=== PATIENT | male | born 1970 | race Caucasian/White ===

== ENCOUNTER 2021-09-03 21:56 | Emergency (ER) | payer OTHER ==
[~2021-09-03] VITALS: Ht 182.9 cm; Wt 136.1 kg
[2021-09-03 22:29] LABS: BASOPHILS ABSOLUTE AUTO 0.09 K/mm3 (0.00-0.23); BASOPHILS PERCENT AUTO 1 % (0-2); EOSINOPHILS ABSOLUTE AUTO 0.31 K/mm3 (0.00-0.68); EOSINOPHILS PERCENT AUTO 3 % (0-6); Hematocrit 45.1 % (37.0-53.0); Hemoglobin 15.7 g/dL (13.5-17.5); IMMATURE GRAN ABSOLUTE AUTO 0.04 K/mm3 (0.00-0.10); IMMATURE GRAN PERCENT AUTO 0 % (0-1); LYMPHOCYTES ABSOLUTE AUTO 2.42 K/mm3 (0.84-5.20); LYMPHOCYTES PERCENT AUTO 24 % (21-46); MONOCYTES ABSOLUTE AUTO 1.05 K/mm3 (0.16-1.47); MONOCYTES PERCENT AUTO 10 % (4-13); Mean Corpuscular HGB 30.1 pg (26.0-34.0); Mean Corpuscular HGB Conc 34.8 g/dL (31.5-36.5); Mean Corpuscular Volume 86 fL (80-100); Mean Platelet Volume 9.4 fL (9.1-12.4); NEUTROPHILS ABSOLUTE AUTO 6.36 K/mm3 (1.96-9.15); NEUTROPHILS PERCENT AUTO 62 % (41-73); Platelet Count 230 K/mm3 (150-400); RDW Coefficient Variation 12.4 % (11.7-14.2); RDW Standard Deviation 39.3 fL (35.1-46.3); Red Blood Cell Count 5.22 M/mm3 (4.30-5.90); White Blood Cell Count 10.27 K/mm3 (4.00-11.30)
[2021-09-03 22:49] LABS: Alanine Aminotransfer (ALT/SGP 65 U/L (12-78); Albumin, Blood 3.6 g/dL (3.4-5.0); Alk Phos 63 U/L (50-136); Anion Gap 5 mmol/L (6-16); Aspartate Aminotrans (AST/SGOT 45 U/L (12-37); Bilirubin, Total 0.4 mg/dL (0.1-1.0); Blood Urea Nitrogen 16 mg/dL (8-24); Bun/Creatinine Ratio 17.6 (12.0-20.0); CO2, Blood 26 mmol/L (21-32); Calcium, Blood 8.6 mg/dL (8.5-10.1); Chloride, Blood 108 mmol/L (98-108); Creatinine, Blood 0.91 mg/dL (0.60-1.20); Globulin, Blood 3.7 g/dL (2.2-4.0); Glomerular Filtration Rate >60 (60-); Glucose, Blood 112 mg/dL (70-99); Potassium, Blood 3.8 mmol/L (3.5-5.5); Sodium, Blood 139 mmol/L (136-145); Total Protein, Blood 7.3 g/dL (6.4-8.2)
[2021-09-03] MEDS ORDERED: HYDCHL12.5 PO (22:58)
[2021-09-03] MEDS ORDERED: LOSARTAN-HCTZ1 EACH PO (22:59)
== END 2021-09-04 00:09 | disposition home or self-care (01) ==
LOC: ER 21:56
PROVIDERS: Physician Assistant
DX: K92.1 Melena (principal); Z88.8 Allergy status to other drugs, medicaments and biological substances; I10 Essential (primary) hypertension; Z87.891 Personal history of nicotine dependence
CPT/HCPCS: 74176; 80053; 82272; 85025; 86850; 86900; 86901; 93005; 93010; 99284-25

== ENCOUNTER 2022-02-26 13:59 | Emergency (ER) | payer OTHER ==
[~2022-02-26] VITALS: Ht 182.9 cm; Wt 149.0 kg
[~2022-02-26 13:59] MED LIST: HYDCHL12.5 PO; LOSARTAN-HCTZ1 EACH PO
[2022-02-26 15:01] LABS: Influenza A, PCR NEGATIVE (NEGATIVE); Influenza B, PCR NEGATIVE (NEGATIVE); Resp Syncytial Virus, PCR NEGATIVE (NEGATIVE); SARS-Cov-2 (COVID-19) PCR, MMC NEGATIVE (NEGATIVE)
[2022-02-26 16:07] LABS: Source, Urine Voided
[2022-02-26 16:11] LABS: Appearance, Urine Clear (Clear); Bilirubin, Urine Neg (Neg); Blood, Urine 1+ (Neg); Color, Urine Yellow (P-Yellow); Glucose Qualitative, Urine Neg (Neg); Ketones, Urine Neg (Neg); Leukocyte Esterase, Urine Neg (Neg); Nitrite, Urine Neg (Neg); Protein, Urine Neg (Neg); Urobilinogen, Urine NORM (Normal)
[2022-02-26 16:18] LABS: Bacteria Few /hpf; Squamous Epithelial Cells Not Seen /hpf (Few); White Blood Cells, Urine 0-2 /hpf (0-5)
== END 2022-02-26 16:33 | disposition home or self-care (01) ==
LOC: ER 13:59
PROVIDERS: Emergency Medicine; Physician Assistant
DX: J06.9 Acute upper respiratory infection, unspecified (principal); I10 Essential (primary) hypertension; Z79.899 Other long term (current) drug therapy; Z88.6 Allergy status to analgesic agent; Z20.822 Contact with and (suspected) exposure to COVID-19
CPT/HCPCS: 0241U; 71045; 81001; A9270

== ENCOUNTER 2022-03-01 09:22 | Inpatient (IN) | payer OTHER ==
[~2022-03-01] VITALS: Ht 182.9 cm; Wt 146.0 kg
[2022-03-01 10:39] LABS: BASOPHILS ABSOLUTE AUTO 0.06 K/mm3 (0.00-0.23); BASOPHILS PERCENT AUTO 1 % (0-2); EOSINOPHILS ABSOLUTE AUTO 0.09 K/mm3 (0.00-0.68); EOSINOPHILS PERCENT AUTO 1 % (0-6); Hematocrit 44.9 % (37.0-53.0); Hemoglobin 15.4 g/dL (13.5-17.5); IMMATURE GRAN ABSOLUTE AUTO 0.05 K/mm3 (0.00-0.10); IMMATURE GRAN PERCENT AUTO 1 % (0-1); LYMPHOCYTES ABSOLUTE AUTO 0.93 K/mm3 (0.84-5.20); LYMPHOCYTES PERCENT AUTO 9 % (21-46); MONOCYTES ABSOLUTE AUTO 1.16 K/mm3 (0.16-1.47); MONOCYTES PERCENT AUTO 11 % (4-13); Mean Corpuscular HGB Conc 34.3 g/dL (31.5-36.5); Mean Corpuscular Volume 85 fL (80-100); Mean Platelet Volume 9.5 fL (9.1-12.4); NEUTROPHILS ABSOLUTE AUTO 8.52 K/mm3 (1.96-9.15); NEUTROPHILS PERCENT AUTO 79 % (41-73); Platelet Count 201 K/mm3 (150-400); RDW Coefficient Variation 13.2 % (11.7-14.2); RDW Standard Deviation 41.3 fL (35.1-46.3); Red Blood Cell Count 5.31 M/mm3 (4.30-5.90); White Blood Cell Count 10.81 K/mm3 (4.00-11.30)
[2022-03-01 10:56] LABS: Albumin/Globulin Ratio 0.6 (0.8-1.8); Bilirubin, Total 0.6 mg/dL (0.1-1.0); Bun/Creatinine Ratio 20.5 (12.0-20.0); Calcium, Blood 9.3 mg/dL (8.5-10.1); Creatinine, Blood 0.88 mg/dL (0.60-1.20); Globulin, Blood 4.9 g/dL (2.2-4.0); Potassium, Blood 3.6 mmol/L (3.5-5.5); Total Protein, Blood 7.9 g/dL (6.4-8.2)
[2022-03-01] MEDS ORDERED: Trazodone HCl300 MG PO (11:07)
[2022-03-01] MEDS ORDERED: ZESTORETIC 20-1 EAC1 PO (11:08)
--- NOTE | 2022-03-02 04:44 | NUR ---
SHIFT SUMMARY: PT IS A/OX4. HE IS INDEPENDENT IN ROOM WITH CRUTCHES FOR AMBULATION. RT LEG IS ERYTHEMATOUS AND HAS A DEMARCATION LINE. HIS PAIN IS MANAGED WITH PRN TYLENOL. HIS S.O. BROUGHT IN HIS NIGHTLY CPAP. PT HAS BEEN RESTING W/ NO C/O. WE'LL CONTINUE TO MONITOR.
--- NOTE | 2022-03-02 16:39 | NUR ---
DAY SHIFT SUMMARY 52 YR OLD MALE PT WITH CELULITIS TO RT LOWER LEG. PT IS A/O X4 AND INDEPENDENT IN ROOM. CALL LIGHT WITHIN REACH AND ABLE TO CALL APPROPRIATELY. AT BEDSIDE. PT USES CP WHEN NAPING AND AT NIGHT. NO ACUTE CHANGES THIS SHIFT. PT RECEIVING ABX IV.
--- NOTE | 2022-03-03 04:16 | NUR ---
SHIFT SUMMARY: PT IS A/OX4. RLE CONTINUES TO BE ERYTHEMATOUS AND PAINFUL. PRN TYLENOL IS EFFECTIVE IN MANAGING PT'S PAIN. INDEPENDENT IN ROOM; USES CRUTCHES TO BATHROOM. NEW IV IN LF HAND INFUSING INTERMITTENT ABX. PT USES HOME CPAP AT NIGHT. CALL LIGHT IS WITHIN REACH.
--- NOTE | 2022-03-03 19:25 | NUR ---
SHIFT SUMMARY: PT A/O X 4 IND IN ROOM WITH CRUTCHES. PLEASANT AND COOPERATIVE. NO CHANGES IN REDNESS TO RLE EXTREMITY TODAY. PAIN MANAGED WITH TYLENOL AT THIS TIME. BLOOD CX 2ND DAY NEGATIVE. NO ACUTE CHANGES AT THIS TIME.
--- NOTE | 2022-03-03 19:30 | NUR ---
RECEIVED REPORT AND ASSUMED CARE OF PT. HE IS SITTING UP IN BED WATCHING TV, DENIES ANY NEEDS AT THIS TIME. CALL LIGHT IN REACH.
--- NOTE | 2022-03-04 05:09 | NUR ---
SHIFT SUMMARY: MANGO IS A&OX4. VSS, NO ACUTE EVENTS OVERNIGHT. HE REPORTS MODERATE PAIN CONTROL WITH THE APAP. HE HAS RESTED QUIETLY SINCE TAKING THE TRAZODONE AND PUTTING HIS CPAP ON A LITTLE BEFORE MIDNIGHT. HE IS INDEPENDENT IN THE ROOM, AMBULATES WITH THE CRUTCHES, AND HAS REPORTED DIARRHEA, STOOL SOFTENERS HELD. HE IS TOLERATING PO INTAKE WELL AND IS ABLE TO MAKE HIS NEEDS KNOWN. HE DOES REPORT OVERALL IMPROVEMENT IN THE PAIN AND SWELLING IN HIS RIGHT FOOT, BUT DOES HAVE SIGNIFICANT REDNESS UP TO HIS KNEE AND MOTTLED REDNESS TO MID-THIGH. THE CHANGE IN HIS SKIN TEXTURE ARE ISOLATED TO BELOW THE KNEE. HE USES THE CALL LIGHT APPROPRIATELY, IV TO L AC PATENT. HE IS LYING IN BED WITH THE CPAP IN PLACE, CALL LIGHT IN REACH. WILL REPORT TO DAY SHIFT RN.
[2022-03-04 05:40] LABS: Hemoglobin 13.8 g/dL (13.5-17.5); Mean Corpuscular HGB 29.1 pg (26.0-34.0); Mean Corpuscular HGB Conc 33.7 g/dL (31.5-36.5); Mean Corpuscular Volume 87 fL (80-100); Mean Platelet Volume 9.7 fL (9.1-12.4); Platelet Count 265 K/mm3 (150-400); RDW Coefficient Variation 13.9 % (11.7-14.2); RDW Standard Deviation 44.2 fL (35.1-46.3); Red Blood Cell Count 4.74 M/mm3 (4.30-5.90); White Blood Cell Count 11.16 K/mm3 (4.00-11.30)
[2022-03-04 05:59] LABS: Bun/Creatinine Ratio 20.7 (12.0-20.0); Calcium, Blood 8.9 mg/dL (8.5-10.1); Creatinine, Blood 0.87 mg/dL (0.60-1.20); Potassium, Blood 3.4 mmol/L (3.5-5.5)
--- NOTE | 2022-03-04 18:03 | NUR ---
SHIFT SUMMARY: PT A/O X 4 IND IN ROOM WITH CRUTCHES, PLEASANT AND COOPERATIVE WITH CARES. PAIN HAS BEEN MANAGED WITH TYLENOL THROUGH OUT SHIFT. TOLERATING VANCOMYCIN ANTIBIOTIC AT THIS TIME. REDNESS AND SWELLING TO RLE REMAINS UNCHANGED IN APPEARANCE BUT PT DID REPORT HIS SHARP INTENSE BURNING PAIN THAT OCCUURS WHEN HE AMBULATES IS NO LONGER PRESENT. NO OTHER CONCERNS AR COMPLAINTS VOICED BY PATIENT TODAY.
--- NOTE | 2022-03-05 04:39 | NUR ---
SHIFT SUMMARY ADMITTED FOR CELLULITIS OF RLE. FULL CODE. IV ANTIB RX ARE SCHEDULED. INDEPENDENT W/CRUTCHES IN ROOM. REGULAR DIET. ON RA. A&O X4. REPORTS DIARRHEA SINCE ADMIT. WILL DC HOME W/ WHEN READY FOR DC. USING HOME CPAP @ . PRN TYLENOL FOR PAIN
[2022-03-05 09:54] LABS: Vancomycin, Trough 12.3 ug/mL (5.0-10.0)
[2022-03-05 10:09] LABS: Bun/Creatinine Ratio 15.8 (12.0-20.0); Calcium, Blood 9.4 mg/dL (8.5-10.1); Creatinine, Blood 0.95 mg/dL (0.60-1.20); Potassium, Blood 3.8 mmol/L (3.5-5.5)
--- NOTE | 2022-03-05 18:03 | NUR ---
SHIFT SUMMARY PATIENT MEDICATED FOR PAIN X2. PATIENT DENIES NAUSEA AND SHORTNESS OF BREATH. PATIENT IS INDEPENDENT IN ROOM WITH CRUTCHES. PATIENT VISITED IN AFTERNOON. REDNESS/SWELLING TO RIGHT LEG IMPROVING. PATIENT IS EATING AND DRINKING WELL. PATIENT IS PLEASANT AND COOPERATIVE WITH CARE.
--- NOTE | 2022-03-06 03:52 | NUR ---
SHIFT SUMMARY PT REPORTS FEELING OVERALL MUCH IMPROVEMENT TO RLE CELLULITIS. MINIMAL PAIN. MEDICATED X 1 W/ 650 MG TYLENOL. REDNESS AND HEAT TO RLE REMAIN BUT ARE IMPROVED PER PT. NEW IV TO LFA PLACED BY STUDENT SUPPORT SERVICES DIRECTOR DUE TO PREVIOUS IV LEAKING. PT DID COMPLAIN OF SOME HEARTBURN THIS EVENING. NEW ORDER FOR TUMS OBTAINED. TUMS ADMINISTERED WITH GOOD EFFECT. PT ON HOME CPAP WHILE SLEEPING. VITAL SIGNS STABLE. AFEBRILE. PT RESTING IN BED AT THIS TIME.
--- NOTE | 2022-03-06 16:57 | NUR ---
SHIFT SUMMARY PATIENT MEDICATED FOR PAIN X1. PATIENT DENIES NAUSEA AND SHORTNESS OF BREATH. PATIENT IS INDEPENDENT IN ROOM. PATIENT VISITED TODAY. PATIENT IS USING A CANE TO WALK INSTEAD OF CRUTCHES. PATIENT STATES HIS LEG IS FEELING MUCH BETTER. DRESSING CHANGED ON IV. PATIENT IS EATING AND DRINKING WELL. PATIENT IS PLEASANT AND COOPERATIVE WITH CARE.
--- NOTE | 2022-03-07 05:43 | NUR ---
SHIFT SUMMARY PT HAD AN UNEVENTFUL NIGHT. RLE REMAINS WITH SOME REDNESS AND SWELLING BUT MUCH IMPROVED FROM ADMISSION. VERY LITTLE PAIN, REPORTS MORE AN INTERMITTENT BURNING. MEDICATED W/ TYLENOL. USING CANE FOR AMBULATION. VITAL SIGNS STABLE. PT WENT TO BED AROUND MIDNIGHT AND HAS SLEPT MOST OF THE NIGHT SINCE. PT HOPEFUL FOR D/C HOME TODAY.
[2022-03-07 09:38] LABS: Vancomycin, Trough 16.6 ug/mL (5.0-10.0)
[2022-03-07] MEDS ORDERED: AMOCLA875 PO (12:16)
[2022-03-07] MEDS ORDERED: VISBIOME 112.51 EACH PO (12:16)
[2022-03-07] MEDS ORDERED: DOXY100 PO (12:17)
[2022-03-07] MEDS ORDERED: BETASEPT118 M1 TOP (12:18)
--- NOTE | 2022-03-07 13:08 | NUR ---
DISCHARGE PATIENT TRANSPORTED VIA WHEELCHAIR TO PRIVATE VEHICLE. DISCHARGE INSTRUCTIONS EXPLAINED TO PATIENT AND . BOTH STATED UNDERSTANDING. PACKET SENT WITH PATIENT. IV REMOVED WITHOUT DIFFICULTY. BELONGINGS SENT WITH PATIENT. PERSONAL CPAP SENT WITH PATIENT. MEDICATIONS FAXED TO PREFERRED PHARMACY. PATIENT TO SCHEDULE FOLLOW UP WITH PCP.
== END 2022-03-07 13:03 | disposition home or self-care (01) | DRG 603 ==
LOC: ER 09:22 → MEDS 14:46
PROVIDERS: Physician Assistant; ADMIT Internal Medicine
DX: L03.115 Cellulitis of right lower limb (principal); Z68.41 Body mass index [BMI] 40.0-44.9, adult; I10 Essential (primary) hypertension; R00.0 Tachycardia, unspecified; G47.33 Obstructive sleep apnea (adult) (pediatric); G47.00 Insomnia, unspecified; E66.9 Obesity, unspecified; Z87.891 Personal history of nicotine dependence; Z98.890 Other specified postprocedural states; Z88.8 Allergy status to other drugs, medicaments and biological substances; Z79.899 Other long term (current) drug therapy
CPT/HCPCS: 36415; 73630; 73701; 80048; 80053; 80202; 82565; 83605; 83690; 85025; 85027; 85651; 87040; 93971; 94762; 96365; 96366; 96375; 99285-25; A9270; J0690; J1650; J3370; J7040; J7060; Q9967

== ENCOUNTER 2022-06-10 15:00 | Inpatient (IN) | payer OTHER ==
[~2022-06-10] VITALS: Ht 182.9 cm; Wt 144.3 kg
[~2022-06-10 15:00] MED LIST changes: +AMOCLA875 PO; +BETASEPT118 M1 TOP; +DOXY100 PO; +Trazodone HCl300 MG PO; +VISBIOME 112.51 EACH PO; +ZESTORETIC 20-1 EAC1 PO
[2022-06-10] MEDS ORDERED: HYDCHL25 PO (15:58)
[2022-06-10 16:06] LABS: BASOPHILS ABSOLUTE AUTO 0.11 K/mm3 (0.00-0.23); BASOPHILS PERCENT AUTO 0 % (0-2); EOSINOPHILS ABSOLUTE AUTO 0.01 K/mm3 (0.00-0.68); EOSINOPHILS PERCENT AUTO 0 % (0-6); Hematocrit 44.3 % (37.0-53.0); IMMATURE GRAN ABSOLUTE AUTO 0.78 K/mm3 (0.00-0.10); IMMATURE GRAN PERCENT AUTO 3 % (0-1); LYMPHOCYTES ABSOLUTE AUTO 0.72 K/mm3 (0.84-5.20); LYMPHOCYTES PERCENT AUTO 3 % (21-46); MONOCYTES ABSOLUTE AUTO 1.28 K/mm3 (0.16-1.47); MONOCYTES PERCENT AUTO 5 % (4-13); Mean Corpuscular HGB 28.5 pg (26.0-34.0); Mean Corpuscular HGB Conc 33.9 g/dL (31.5-36.5); Mean Corpuscular Volume 84 fL (80-100); Mean Platelet Volume 9.2 fL (9.1-12.4); NEUTROPHILS ABSOLUTE AUTO 23.85 K/mm3 (1.96-9.15); NEUTROPHILS PERCENT AUTO 89 % (41-73); Platelet Count 215 K/mm3 (150-400); RDW Coefficient Variation 13.2 % (11.7-14.2); RDW Standard Deviation 39.8 fL (35.1-46.3); Red Blood Cell Count 5.27 M/mm3 (4.30-5.90); White Blood Cell Count 26.75 K/mm3 (4.00-11.30)
[2022-06-10 16:22] LABS: Albumin, Blood 3.6 g/dL (3.4-5.0); Bilirubin, Total 0.7 mg/dL (0.1-1.0); Bun/Creatinine Ratio 16.8 (12.0-20.0); Calcium, Blood 9.9 mg/dL (8.5-10.1); Creatinine, Blood 1.07 mg/dL (0.60-1.20); Globulin, Blood 3.6 g/dL (2.2-4.0); Potassium, Blood 4.1 mmol/L (3.5-5.5); Total Protein, Blood 7.2 g/dL (6.4-8.2)
--- NOTE | 2022-06-10 20:20 | NUR ---
SPOKE WITH DR SANTIAGO RE POSSIBLILITY OF A TELE ORDER R/T PT'S DX OF SEPSIS WITH CELLULITIS TO RLE AND PT'S REPORT OF HR > 130'S BEFORE COMING TO THE ER. PT'S HR HAS BEEN 80'S TO 90'S WHILE PT HAS BEEN IN ER. DID NOT AGREE WITH THE NEED FOR A TELE AT THIS TIME. WILL ASSESS AND MONITOR PT ONCE THEY ARRIVE TO THE ROOM AND CALL DR BACK IF NEEDED. WILL ALSO LOOK OUT FOR NEW ORDERS.
[2022-06-10] MEDS ORDERED: Prinivil10 MG PO (21:20)
[2022-06-10] MEDS ORDERED: Allergy Relief10 M1 PO (21:22)
--- NOTE | 2022-06-10 23:41 | NUR ---
PT REQUESTED HIS HOME BP MED WITH THE COMBINATION OF LISINOPRIL WITH HCTZ THAT HE TAKES AT BEDTIME ALONG WITH HIS LISINPRIL 20 MG THAT HE ALSO TAKES AT BEDTIME. HE HAS NOT HAD EITHER MEDICATION TONIGHT. HOME MEDS HAVE BEEN VERIFIED SINCE PT WAS ADMITTED. LISINOPRIL 20 MG HAS BEEN ORDERED BUT NOT THE COMBINATION MEDICATION. CALLED DR SANTIAGO TO RELAY ALL OF THIS INFORMATION. DR SANTIAGO STATED HE WAS HOLDING THE COMBINATION BP MEDICATION FOR NOW BUT THAT IT WAS OK TO START THE LISINOPRIL TONIGHT. RELAYED DR'S ORDERS TO THE PATIENT, PATIENT IS NOT HAPPY, WANTS TO KNOW WHY THE DR IS HOLDING THE OTHE MEDICATION, THE DR DID NOT LET US KNOW WHY. PT WILL SPEAK WITH THE DR IN THE AM FOR A CLEARER REASON.
--- NOTE | 2022-06-11 01:03 | NUR ---
06/10/222115 PT ARRIVED TO ROOM FROM ER IN STABLE CONDITION. DENIES PAIN OR DISCOMFORT AT THIS TIME. CELLULIITIS TO RLE, OUTLINED REDNESS. PT USES A CPAP, IS BRINGING IN. PT REFUSES TO WEAR THE CONTINUOUS BIOX, WILL LET RT KNOW. NO OTHER APPARENT SIGNS OF DISTRESS. CALL LIGHT IS IN REACH.
--- NOTE | 2022-06-11 02:13 | NUR ---
0130 PT LYING IN BED, AWAKE, REQUESTS TO HAVE IV UNHOOKED, AGREED TO WAIT UNTIL ANTIBIOTIC IS FINISHED. NO OTHER APPARENT SIGNS OF DISTRESS. CALL LIGHT IS IN REACH.
--- NOTE | 2022-06-11 02:13 | NUR ---
0000 PT LYING IN BED, EYES CLOSED, APPEARS TO BE RESTIG. BREATHING IS EVEN, UNLABORED. NO APPARENT SIGNS OF DISTRESS. CALL LIGHT IS IN REACH.
[2022-06-11] MEDS ORDERED: HYDCHL25 PO (03:26)
[2022-06-11 03:28] LABS: BASOPHILS ABSOLUTE AUTO 0.09 K/mm3 (0.00-0.23); BASOPHILS PERCENT AUTO 1 % (0-2); EOSINOPHILS ABSOLUTE AUTO 0.01 K/mm3 (0.00-0.68); EOSINOPHILS PERCENT AUTO 0 % (0-6); Hematocrit 39.9 % (37.0-53.0); Hemoglobin 13.6 g/dL (13.5-17.5); IMMATURE GRAN ABSOLUTE AUTO 0.13 K/mm3 (0.00-0.10); IMMATURE GRAN PERCENT AUTO 1 % (0-1); LYMPHOCYTES ABSOLUTE AUTO 0.78 K/mm3 (0.84-5.20); LYMPHOCYTES PERCENT AUTO 5 % (21-46); MONOCYTES ABSOLUTE AUTO 0.93 K/mm3 (0.16-1.47); MONOCYTES PERCENT AUTO 5 % (4-13); Mean Corpuscular HGB 28.9 pg (26.0-34.0); Mean Corpuscular HGB Conc 34.1 g/dL (31.5-36.5); Mean Corpuscular Volume 85 fL (80-100); Mean Platelet Volume 9.2 fL (9.1-12.4); NEUTROPHILS ABSOLUTE AUTO 15.48 K/mm3 (1.96-9.15); NEUTROPHILS PERCENT AUTO 89 % (41-73); Platelet Count 166 K/mm3 (150-400); RDW Coefficient Variation 13.2 % (11.7-14.2); RDW Standard Deviation 41.3 fL (35.1-46.3); Red Blood Cell Count 4.71 M/mm3 (4.30-5.90); White Blood Cell Count 17.42 K/mm3 (4.00-11.30)
[2022-06-11 03:47] LABS: Albumin, Blood 3.1 g/dL (3.4-5.0); Anion Gap 5 mmol/L (6-16); Blood Urea Nitrogen 16 mg/dL (8-24); Bun/Creatinine Ratio 16.4 (12.0-20.0); CO2, Blood 28 mmol/L (21-32); Calcium, Blood 8.1 mg/dL (8.5-10.1); Chloride, Blood 105 mmol/L (98-108); Creatinine, Blood 0.98 mg/dL (0.60-1.20); Glomerular Filtration Rate 94 (60-); Glucose, Blood 124 mg/dL (70-99); Phosphorus, Blood 2.4 mg/dL (2.5-4.9); Potassium, Blood 3.7 mmol/L (3.5-5.5); Sodium, Blood 138 mmol/L (136-145)
--- NOTE | 2022-06-11 04:33 | NUR ---
PT IS AAO X 4, ON RA. REDNESS TO RLE, OUTLINED. DENIED DISCOMFORT FOR THIS SHIFT. BS WAS 165
--- NOTE | 2022-06-11 04:33 | NUR ---
PT LYING IN BED, EYES CLOSED, APPEARS TO BE RESTING. BREATHING IS EVEN, UNLABORED. NO APPARENT SIGNS OF DISTRESS. CALL LIGHT IS IN REACH.
--- NOTE | 2022-06-11 06:17 | NUR ---
PT LYING IN BED, EYES CLOSED, APPEARS TO BE RESTING. BREATHING IS EVEN, UNLABORED. NO APPARENT SIGNS OF DISTRESS. CALL LIGHT IS IN REACH. NO OTHER CHANGES THIS SHIFT.
[2022-06-11 17:32] LABS: Vancomycin, Trough 10.2 ug/mL (5.0-10.0)
--- NOTE | 2022-06-11 17:53 | NUR ---
SHIFT SUMMARY: Patient A&OX4. Pleasant and cooperative with care. Uses call light appropriately and able to advocate for his needs. Ambulates in room and to bathroom independently. Lungs clear T/O. Denies SOB. RLE redness with outline marking with no changes this shift. No fever and denies pain to affected site. Patient recieved all scheduled antibiotics. Patient ate 100% all meals this shift. Vital signs reviewed. Bed in lowest position, locked, call light and ice water in reach.
--- NOTE | 2022-06-12 04:36 | NUR ---
SUMMARY: NO ACUTE EVENTS OVERNGIHT. PATIENT REDNESS TO RLE IS DECREASED FROM OUTLINE SARABIA. NO OPEN AREAS ON RLE. IV VANC GIVEN. VSS. PATIENT AMBULATES INDEPENDENTLY IN ROOM. NO COMPLAINTS OF PAIN.
[2022-06-12 05:09] LABS: Hematocrit 42.5 % (37.0-53.0); Hemoglobin 14.6 g/dL (13.5-17.5); Mean Corpuscular HGB Conc 34.4 g/dL (31.5-36.5); Mean Corpuscular Volume 84 fL (80-100); Mean Platelet Volume 9.2 fL (9.1-12.4); Platelet Count 166 K/mm3 (150-400); RDW Coefficient Variation 13.2 % (11.7-14.2); RDW Standard Deviation 40.5 fL (35.1-46.3); Red Blood Cell Count 5.04 M/mm3 (4.30-5.90); White Blood Cell Count 9.46 K/mm3 (4.00-11.30)
[2022-06-12 05:30] LABS: Albumin, Blood 3.2 g/dL (3.4-5.0); Anion Gap 8 mmol/L (6-16); Blood Urea Nitrogen 14 mg/dL (8-24); Bun/Creatinine Ratio 14.9 (12.0-20.0); CO2, Blood 26 mmol/L (21-32); Calcium, Blood 8.6 mg/dL (8.5-10.1); Chloride, Blood 103 mmol/L (98-108); Creatinine, Blood 0.94 mg/dL (0.60-1.20); Glomerular Filtration Rate 99 (60-); Glucose, Blood 108 mg/dL (70-99); Phosphorus, Blood 3.5 mg/dL (2.5-4.9); Potassium, Blood 3.7 mmol/L (3.5-5.5); Sodium, Blood 137 mmol/L (136-145)
--- NOTE | 2022-06-12 18:00 | NUR ---
SHIFT SUMMARY PT A&OX4 AND IN PLEASENT MOOD T/O SHIFT. IN DURING VISITING HOURS. TOLERATING PO INTAKE, IND IN ROOM. VSS, HTN NOTED. REDDNESS ON LLE DECREASING. PLAN TO DC TOMORROW. CALL LIGHT W/IN REACH.
--- NOTE | 2022-06-13 04:26 | NUR ---
SHIFT SUMMARY 52 YR M ADMITTED ON 06/10/22 FOR CELLULITIS OF RLE. FULL CODE. PT STATES HE IS DOING MUCH BETTER AND HAD NO C/O PAIN THIS SHIFT. HE IS INDEPENDANT IN THE ROOM AND IS HOPING TO DISCHARGE TODAY.
[2022-06-13 09:22] LABS: Vancomycin, Trough 13.9 ug/mL (5.0-10.0)
[2022-06-13] MEDS ORDERED: VISBIOME 112.51 EACH PO (09:59)
[2022-06-13] MEDS ORDERED: CEPH500 PO (09:59)
--- NOTE | 2022-06-13 12:26 | NUR ---
SUMMARY/DISCHARGE PT DISCHARGED TO HOME, PT VERBALIZED UNDERSTANDING OF DISCHARGE INSTRUCTIONS REGARDING MEDS AND FOLLOW UP, PT TAKEN OUT SAFELY VIA WHEELCHAIR
== END 2022-06-13 12:20 | disposition home or self-care (01) | DRG 872 ==
LOC: ER 15:00 → MEDS 17:56
PROVIDERS: Internal Medicine; Physician Assistant; ADMIT Internal Medicine
DX: A41.9 Sepsis, unspecified organism (principal); L03.115 Cellulitis of right lower limb; Z68.41 Body mass index [BMI] 40.0-44.9, adult; I10 Essential (primary) hypertension; G47.33 Obstructive sleep apnea (adult) (pediatric); G47.00 Insomnia, unspecified; E88.81 Metabolic syndrome and other insulin resistance; E66.01 Morbid (severe) obesity due to excess calories; E83.39 Other disorders of phosphorus metabolism; Z79.899 Other long term (current) drug therapy; Z98.890 Other specified postprocedural states; Z99.81 Dependence on supplemental oxygen
CPT/HCPCS: 36415; 71045; 80053; 80069; 80202; 82947; 83036; 83605; 83690; 83880; 84145; 85025; 85027; 87040; 93005; 93010; 94760; 96365; 96366; 99285-25; A9270; J1650; J2543; J3370; J7050; J7120

== ENCOUNTER 2022-08-10 05:46 | Inpatient (IN) | payer OTHER ==
[~2022-08-10] VITALS: Ht 182.9 cm; Wt 154.2 kg
[~2022-08-10 05:46] MED LIST changes: +Allergy Relief10 M1 PO; +CEPH500 PO; +HYDCHL25 PO; +Prinivil10 MG PO
[2022-08-10 07:34] LABS: BASOPHILS ABSOLUTE AUTO 0.07 K/mm3 (0.00-0.23); BASOPHILS PERCENT AUTO 0 % (0-2); EOSINOPHILS ABSOLUTE AUTO 0.15 K/mm3 (0.00-0.68); EOSINOPHILS PERCENT AUTO 1 % (0-6); Hematocrit 43.4 % (37.0-53.0); Hemoglobin 15.1 g/dL (13.5-17.5); IMMATURE GRAN ABSOLUTE AUTO 0.12 K/mm3 (0.00-0.10); IMMATURE GRAN PERCENT AUTO 1 % (0-1); LYMPHOCYTES PERCENT AUTO 4 % (21-46); MONOCYTES ABSOLUTE AUTO 0.99 K/mm3 (0.16-1.47); MONOCYTES PERCENT AUTO 6 % (4-13); Mean Corpuscular HGB 28.5 pg (26.0-34.0); Mean Corpuscular HGB Conc 34.8 g/dL (31.5-36.5); Mean Corpuscular Volume 82 fL (80-100); Mean Platelet Volume 9.9 fL (9.1-12.4); NEUTROPHILS ABSOLUTE AUTO 14.33 K/mm3 (1.96-9.15); NEUTROPHILS PERCENT AUTO 88 % (41-73); Platelet Count 197 K/mm3 (150-400); RDW Coefficient Variation 13.4 % (11.7-14.2); RDW Standard Deviation 39.9 fL (35.1-46.3); Red Blood Cell Count 5.29 M/mm3 (4.30-5.90); White Blood Cell Count 16.26 K/mm3 (4.00-11.30)
[2022-08-10 07:50] LABS: Albumin, Blood 3.8 g/dL (3.4-5.0); Bilirubin, Total 0.7 mg/dL (0.1-1.0); Bun/Creatinine Ratio 19.6 (12.0-20.0); Calcium, Blood 9.1 mg/dL (8.5-10.1); Creatinine, Blood 0.87 mg/dL (0.60-1.20); Globulin, Blood 3.7 g/dL (2.2-4.0); Potassium, Blood 3.8 mmol/L (3.5-5.5); Total Protein, Blood 7.5 g/dL (6.4-8.2)
[2022-08-10] MEDS ORDERED: TORSE20 PO (07:51)
[2022-08-10] MEDS ORDERED: NIFE30ER PO (07:53)
--- NOTE | 2022-08-11 05:20 | NUR ---
SHIFT SUMMARY A/OX4- IND IN THE ROOM. WHEN PT ARRIVED TO THE FLOOR, HIS RLE CELLULITIS WAS OUTLINED W/ BLACK MARKER. HE HAS HAD LITTLE PAIN THROUGHOUT THE SHIFT, BUT HAS HAD A FEVER IN WHICH HE RECIEVED TYLENOL FOR. BP REMAINS SLIGHTLY ELEVATED. TELE IN PLACE. VOIDING WELL AND TOLERATING PO INTAKE, NO N/V. WILL CONTINUE TO MONITOR AND REPORT TO ONCOMING RN.
[2022-08-11 05:46] LABS: BASOPHILS ABSOLUTE AUTO 0.05 K/mm3 (0.00-0.23); BASOPHILS PERCENT AUTO 0 % (0-2); EOSINOPHILS ABSOLUTE AUTO 0.05 K/mm3 (0.00-0.68); EOSINOPHILS PERCENT AUTO 0 % (0-6); Hematocrit 40.3 % (37.0-53.0); Hemoglobin 14.1 g/dL (13.5-17.5); IMMATURE GRAN ABSOLUTE AUTO 0.14 K/mm3 (0.00-0.10); IMMATURE GRAN PERCENT AUTO 1 % (0-1); LYMPHOCYTES ABSOLUTE AUTO 0.59 K/mm3 (0.84-5.20); LYMPHOCYTES PERCENT AUTO 3 % (21-46); MONOCYTES ABSOLUTE AUTO 1.05 K/mm3 (0.16-1.47); MONOCYTES PERCENT AUTO 6 % (4-13); Mean Corpuscular HGB 28.7 pg (26.0-34.0); Mean Corpuscular Volume 82 fL (80-100); Mean Platelet Volume 9.2 fL (9.1-12.4); NEUTROPHILS ABSOLUTE AUTO 15.31 K/mm3 (1.96-9.15); NEUTROPHILS PERCENT AUTO 89 % (41-73); Platelet Count 160 K/mm3 (150-400); RDW Coefficient Variation 13.9 % (11.7-14.2); RDW Standard Deviation 41.1 fL (35.1-46.3); Red Blood Cell Count 4.91 M/mm3 (4.30-5.90); White Blood Cell Count 17.19 K/mm3 (4.00-11.30)
[2022-08-11 06:04] LABS: Bun/Creatinine Ratio 13.5 (12.0-20.0); Calcium, Blood 8.7 mg/dL (8.5-10.1); Creatinine, Blood 0.89 mg/dL (0.60-1.20); Potassium, Blood 3.9 mmol/L (3.5-5.5)
--- NOTE | 2022-08-11 06:42 | NUR ---
CALLED HOSPITALIST WO[employer]INGLE ROOFER TO REPORT PATIENTS REOCCURING HIGH BLOOD PRESSURES, AT THAT TIME HE ORDERED HYDRALIZINE 10MG Q6H FOR BP ABOVE 160. ONCE ORDER WAS ACTIVE IN COMPUTER, IT WAS PULLED, AND GIVEN. WILL REPORT TO ONCOMING RN.
--- NOTE | 2022-08-11 19:41 | NUR ---
SHIFT SUMMARY S/P CELLULITIS, A/O X4, VSS, TOLERATING PO, IV ABX GIVEN ORDERED, INDEPENDENT IN THE ROOM, ABLE TO COMMUNICATE NEEDS, NO ACUTE EVENTS THIS SHIFT, CALL LIGHT IN REACH, REPORT GIVEN TO ARMANI RN.
--- NOTE | 2022-08-12 05:29 | NUR ---
SHIFT SUMMARY A/OX4- IND IN THE ROOM. REDNESS ON RLE HAS MOVED DOWN FOOT, SLIGHTLY OUTSIDE OF THE MARKED LINES, NO PAIN REPORTED. RESTED WELL THROUGHOUT THE NIGHT. VITAL SIGNS STABLE. TOLERATING PO INTAKE, VOIDING WELL AND PASSING STOOL. NO ACUTE CHANGES, WILL CONTINUE TO MONITOR AND REPORT TO ONCOMING RN.
[2022-08-12 05:55] LABS: BASOPHILS ABSOLUTE AUTO 0.05 K/mm3 (0.00-0.23); BASOPHILS PERCENT AUTO 0 % (0-2); EOSINOPHILS ABSOLUTE AUTO 0.07 K/mm3 (0.00-0.68); EOSINOPHILS PERCENT AUTO 1 % (0-6); Hematocrit 41.1 % (37.0-53.0); Hemoglobin 14.3 g/dL (13.5-17.5); IMMATURE GRAN ABSOLUTE AUTO 0.08 K/mm3 (0.00-0.10); IMMATURE GRAN PERCENT AUTO 1 % (0-1); LYMPHOCYTES PERCENT AUTO 10 % (21-46); MONOCYTES ABSOLUTE AUTO 1.44 K/mm3 (0.16-1.47); MONOCYTES PERCENT AUTO 12 % (4-13); Mean Corpuscular HGB 28.7 pg (26.0-34.0); Mean Corpuscular HGB Conc 34.8 g/dL (31.5-36.5); Mean Corpuscular Volume 82 fL (80-100); NEUTROPHILS ABSOLUTE AUTO 8.73 K/mm3 (1.96-9.15); NEUTROPHILS PERCENT AUTO 76 % (41-73); Platelet Count 174 K/mm3 (150-400); RDW Coefficient Variation 13.8 % (11.7-14.2); RDW Standard Deviation 41.4 fL (35.1-46.3); Red Blood Cell Count 4.99 M/mm3 (4.30-5.90); White Blood Cell Count 11.57 K/mm3 (4.00-11.30)
[2022-08-12 06:13] LABS: Albumin, Blood 2.9 g/dL (3.4-5.0); Anion Gap 8 mmol/L (6-16); Blood Urea Nitrogen 17 mg/dL (8-24); Bun/Creatinine Ratio 17.4 (12.0-20.0); CO2, Blood 25 mmol/L (21-32); Calcium, Blood 8.7 mg/dL (8.5-10.1); Chloride, Blood 102 mmol/L (98-108); Creatinine, Blood 0.98 mg/dL (0.60-1.20); Glomerular Filtration Rate 94 (60-); Glucose, Blood 117 mg/dL (70-99); Phosphorus, Blood 2.4 mg/dL (2.5-4.9); Potassium, Blood 3.7 mmol/L (3.5-5.5); Sodium, Blood 135 mmol/L (136-145)
--- NOTE | 2022-08-12 18:57 | NUR ---
SHIFT SUMMARY S/P CELLULITIS, A/OX 4, VSS, TOLERATING PO, INDEPENDENT IN ROOM AND HALLWAYS, ABLE TO MAKE NEEDS KNOWN, POWERGLIDE PLACED FOR OUTPATIENT ABX AFTER DISCHARGE POTENTIALLY TOMORROW. NO ACUTE EVENTS THIS SHIFT, CALL LIGHT IN REACH, REPORT GIVEN TO ARMANI WOODS
--- NOTE | 2022-08-13 03:49 | NUR ---
SHIFT SUMMARY NO ACUTE CHANGES TO REPORT OVERNIGHT,IV ANTIBIOICS CONTINUED ORDERED FOR RLE CELLULITIS. PT HAS NO COMPLAINTS OF PAIN, PT HAS BEEN INDEPENDENT IN THE ROOM. VITALS ARE STABLE, PLAN IS FOR DISCHARGE TODAY WITH OUTPT ANTIBOITCS. BED IN LOWEST POSITION, CALL LIGHT WITHIN REACH.
[2022-08-13 06:05] LABS: BASOPHILS ABSOLUTE AUTO 0.08 K/mm3 (0.00-0.23); BASOPHILS PERCENT AUTO 1 % (0-2); EOSINOPHILS ABSOLUTE AUTO 0.27 K/mm3 (0.00-0.68); EOSINOPHILS PERCENT AUTO 4 % (0-6); Hematocrit 42.4 % (37.0-53.0); Hemoglobin 14.6 g/dL (13.5-17.5); IMMATURE GRAN ABSOLUTE AUTO 0.06 K/mm3 (0.00-0.10); IMMATURE GRAN PERCENT AUTO 1 % (0-1); LYMPHOCYTES ABSOLUTE AUTO 1.45 K/mm3 (0.84-5.20); LYMPHOCYTES PERCENT AUTO 20 % (21-46); MONOCYTES ABSOLUTE AUTO 1.09 K/mm3 (0.16-1.47); MONOCYTES PERCENT AUTO 15 % (4-13); Mean Corpuscular HGB 28.2 pg (26.0-34.0); Mean Corpuscular HGB Conc 34.4 g/dL (31.5-36.5); Mean Corpuscular Volume 82 fL (80-100); Mean Platelet Volume 9.6 fL (9.1-12.4); NEUTROPHILS ABSOLUTE AUTO 4.45 K/mm3 (1.96-9.15); NEUTROPHILS PERCENT AUTO 60 % (41-73); Platelet Count 209 K/mm3 (150-400); RDW Coefficient Variation 13.8 % (11.7-14.2); Red Blood Cell Count 5.18 M/mm3 (4.30-5.90)
[2022-08-13 06:33] LABS: Albumin, Blood 2.8 g/dL (3.4-5.0); Anion Gap 8 mmol/L (6-16); Blood Urea Nitrogen 17 mg/dL (8-24); Bun/Creatinine Ratio 17.1 (12.0-20.0); CO2, Blood 27 mmol/L (21-32); Calcium, Blood 8.5 mg/dL (8.5-10.1); Chloride, Blood 101 mmol/L (98-108); Creatinine, Blood 0.99 mg/dL (0.60-1.20); Glomerular Filtration Rate 93 (60-); Glucose, Blood 129 mg/dL (70-99); Magnesium, Blood 2.6 mg/dL (1.6-2.4); Phosphorus, Blood 3.2 mg/dL (2.5-4.9); Potassium, Blood 3.4 mmol/L (3.5-5.5); Sodium, Blood 136 mmol/L (136-145)
[2022-08-13] MEDS ORDERED: POTA10T PO (11:12)
[2022-08-13] MEDS ORDERED: Acetaminophen650 M1 PO (11:12)
--- NOTE | 2022-08-13 13:11 | NUR ---
DISCHARGE SUMMARY PATIENT ALERT AND ORIENTED THROUGHOUT SHIFT. TOLERATING DIET AND LIQUIDS. INDEPENDENT IN ROOM. VOIDING WELL. DENIES PAIN. RLE RED WITH MINIMAL EDEMA. IMPROVED FROM PREVIOUS OUTLINE ON LE. ROUTINE ABX. DISCHARGE ORDERS GIVEN. DISCHARGE INSTRUCTIONS GIVEN ON NEW RXS, WOUND CARE, AND FOLLOW UP APPTS. IV DC'D WNL. PATIENT LEFT UNIT AT 1310 VIA WHEELCHAIR WITH SPOUSE FOR HOME.
== END 2022-08-13 13:12 | disposition home or self-care (01) | DRG 872 ==
LOC: ER 05:46 → ERHOLD 05:47 → SURS 23:02
PROVIDERS: Emergency Medicine; ADMIT Internal Medicine
DX: A41.9 Sepsis, unspecified organism (principal); L03.115 Cellulitis of right lower limb; Z68.41 Body mass index [BMI] 40.0-44.9, adult; E87.20 Acidosis, unspecified; R65.20 Severe sepsis without septic shock; I10 Essential (primary) hypertension; E66.01 Morbid (severe) obesity due to excess calories; G47.00 Insomnia, unspecified; G47.33 Obstructive sleep apnea (adult) (pediatric); E88.81 Metabolic syndrome and other insulin resistance; Z99.81 Dependence on supplemental oxygen; Z87.891 Personal history of nicotine dependence; Z98.890 Other specified postprocedural states; Z79.899 Other long term (current) drug therapy; Z79.811 Long term (current) use of aromatase inhibitors; Z88.8 Allergy status to other drugs, medicaments and biological substances
CPT/HCPCS: 36415; 80048; 80053; 80069; 83605; 83735; 85025; 87081; 94660; 96365; 96372; 96376; 99284-25; A9270; C1751; G0378; J0690; J1650; J7030; J7050; J7060; J7120

== ENCOUNTER 2024-05-29 17:04 | Inpatient (IN) | payer OTHER ==
[~2024-05-29] VITALS: Ht 182.9 cm; Wt 146.8 kg
[~2024-05-29 17:04] MED LIST changes: +Acetaminophen650 M1 PO; +NIFE30ER PO; +POTA10T PO; +TORSE20 PO
[2024-05-29] MEDS ORDERED: Vancomycin HCL 2,000 MG in NS 520 ML IV ONE (17:50)
[2024-05-29 18:22] LABS: BASOPHILS PERCENT AUTO 1 % (0-2); EOSINOPHILS ABSOLUTE AUTO 0.39 K/mm3 (0.00-0.68); EOSINOPHILS PERCENT AUTO 2 % (0-6); Hemoglobin 14.8 g/dL (13.5-17.5); IMMATURE GRAN ABSOLUTE AUTO 0.07 K/mm3 (0.00-0.10); IMMATURE GRAN PERCENT AUTO 0 % (0-1); LYMPHOCYTES ABSOLUTE AUTO 1.54 K/mm3 (0.84-5.20); LYMPHOCYTES PERCENT AUTO 9 % (21-46); MONOCYTES ABSOLUTE AUTO 1.49 K/mm3 (0.16-1.47); MONOCYTES PERCENT AUTO 9 % (4-13); Mean Corpuscular HGB 28.6 pg (26.0-34.0); Mean Corpuscular HGB Conc 34.4 g/dL (31.5-36.5); Mean Corpuscular Volume 83 fL (80-100); Mean Platelet Volume 9.3 fL (9.1-12.4); NEUTROPHILS ABSOLUTE AUTO 13.09 K/mm3 (1.96-9.15); NEUTROPHILS PERCENT AUTO 79 % (41-73); Platelet Count 193 K/mm3 (150-400); RDW Coefficient Variation 13.2 % (11.7-14.2); RDW Standard Deviation 39.6 fL (35.1-46.3); Red Blood Cell Count 5.18 M/mm3 (4.30-5.90); White Blood Cell Count 16.68 K/mm3 (4.00-11.30)
[2024-05-29 18:40] LABS: C-REACTIVE PROTEIN, EXT RANGE 1.47 mg/dL (0.000-0.300)
[2024-05-29 18:41] LABS: Albumin, Blood 3.6 g/dL (3.4-5.0); Bilirubin, Total 0.5 mg/dL (0.1-1.0); Bun/Creatinine Ratio 19.4 (12.0-20.0); Calcium, Blood 9.1 mg/dL (8.5-10.1); Creatinine, Blood 0.93 mg/dL (0.60-1.20); Globulin, Blood 3.7 g/dL (2.2-4.0); Potassium, Blood 3.7 mmol/L (3.5-5.5); Total Protein, Blood 7.3 g/dL (6.4-8.2)
[2024-05-29] MEDS ORDERED: Acetaminophen 325 MG TABLET PO PRN (19:40)
[2024-05-29] MEDS ORDERED: FLU VACC TS2024-25(6MOS UP)/PF 45 MCG/0.5 ML SYRINGE IM SCH (19:40)
[2024-05-29] MEDS ORDERED: Ondansetron HCl 2 MG / ML 2ML Vial IV PRN (19:40)
[2024-05-29] MEDS ORDERED: Aspir 8181 MG PO (20:51)
[2024-05-29] MEDS ORDERED: CARV25 PO (20:51)
[2024-05-29] MEDS ORDERED: Indapamide2.5 MG PO (20:52)
[2024-05-29] MEDS ORDERED: Lactobacil 2-S.Thermo-Bifido 1 1 Cap PO SCH (21:00)
[2024-05-29 21:16] VITALS: BP 177/86
--- NOTE | 2024-05-29 22:28 | NUR ---
PHYSICIAN CALLED AND HOME RX ORDERED
[2024-05-29] MEDS ORDERED: Indapamide 2.5 MG Tab PO PRN (22:40)
[2024-05-29] MEDS ORDERED: Lisinopril 20 MG Tab PO SCH (23:00)
[2024-05-29] MEDS ORDERED: TraZODone HCl 100 MG Tab PO SCH (23:00)
[2024-05-29] MEDS ORDERED: Carvedilol 25 MG Tab PO SCH (23:00)
[2024-05-30 04:26] VITALS: BP 123/64
[2024-05-30 05:29] LABS: Albumin/Globulin Ratio 0.8 (0.8-1.8); Bilirubin, Total 0.9 mg/dL (0.1-1.0); Bun/Creatinine Ratio 17.7 (12.0-20.0); Calcium, Blood 8.5 mg/dL (8.5-10.1); Creatinine, Blood 0.79 mg/dL (0.60-1.20); Globulin, Blood 3.7 g/dL (2.2-4.0); Magnesium, Blood 1.9 mg/dL (1.6-2.4); Potassium, Blood 4.5 mmol/L (3.5-5.5); Total Protein, Blood 6.7 g/dL (6.4-8.2)
[2024-05-30] MEDS ORDERED: NS 250 ML IV PRN (05:45)
[2024-05-30 05:47] LABS: BASOPHILS ABSOLUTE AUTO 0.07 K/mm3 (0.00-0.23); BASOPHILS PERCENT AUTO 1 % (0-2); EOSINOPHILS ABSOLUTE AUTO 0.36 K/mm3 (0.00-0.68); EOSINOPHILS PERCENT AUTO 3 % (0-6); Hematocrit 40.4 % (37.0-53.0); Hemoglobin 13.9 g/dL (13.5-17.5); IMMATURE GRAN ABSOLUTE AUTO 0.06 K/mm3 (0.00-0.10); IMMATURE GRAN PERCENT AUTO 1 % (0-1); LYMPHOCYTES ABSOLUTE AUTO 1.72 K/mm3 (0.84-5.20); LYMPHOCYTES PERCENT AUTO 15 % (21-46); MONOCYTES ABSOLUTE AUTO 1.32 K/mm3 (0.16-1.47); MONOCYTES PERCENT AUTO 11 % (4-13); Mean Corpuscular HGB 28.4 pg (26.0-34.0); Mean Corpuscular HGB Conc 34.4 g/dL (31.5-36.5); Mean Corpuscular Volume 82 fL (80-100); Mean Platelet Volume 9.2 fL (9.1-12.4); NEUTROPHILS ABSOLUTE AUTO 8.12 K/mm3 (1.96-9.15); NEUTROPHILS PERCENT AUTO 70 % (41-73); Platelet Count 171 K/mm3 (150-400); RDW Coefficient Variation 13.3 % (11.7-14.2); RDW Standard Deviation 39.9 fL (35.1-46.3); White Blood Cell Count 11.65 K/mm3 (4.00-11.30)
[2024-05-30] MEDS ORDERED: Vancomycin HCL 1,750 MG in NS 500 ML IV SCH (06:00)
[2024-05-30 07:41] VITALS: BP 129/75
[2024-05-30] MEDS ORDERED: Enoxaparin 40 MG/0.4 ML SYR SC SCH ×2 (09:00→13:00)
[2024-05-30] MEDS ORDERED: Torsemide 20 MG TAB PO SCH (09:00)
[2024-05-30] MEDS ORDERED: Aspirin 81 MG TabEC PO SCH (09:00)
[2024-05-30] MEDS ORDERED: Potassium Chloride 10 Meq Tablet SA PO SCH (09:00)
[2024-05-30] MEDS ORDERED: Indapamide 2.5 MG Tab PO SCH (11:00)
[2024-05-30] MEDS ORDERED: CefTRIAXone Sodium 1,000 MG in NS 100 ML IV SCH (12:00)
[2024-05-30 16:15] VITALS: BP 131/62
--- NOTE | 2024-05-30 18:10 | NUR ---
SHIFT NOTE: PT A/OX4 IND IN ROOM. HE HAS HAD FAMILY AT BEDSIDE THROUGHOUT THE DAY. HE IS ON RA WHEN AWAKE AND CPAP AT NIGHT. HIS LRE IS RED AND OUTLINED, PICTURES ARE IN THE CHART. IV ANTIBIOTICS RUNNING PER EMAR. PT DENIES PAIN AND NEEDS AT THIS TIME. WILL CONTINUE TO MONITOR AND REPORT TO ONCOMING RN
[2024-05-30 20:10] VITALS: BP 155/81
[2024-05-30] MEDS ORDERED: NIFEdipine 30 MG TabCR PO SCH (21:00)
[2024-05-30] MEDS ORDERED: Loratadine 10 MG Tab PO SCH (21:00)
[2024-05-30] MEDS ORDERED: Lisinopril 20 MG Tab PO SCH (21:35)
[2024-05-30 21:44] VITALS: BP 153/95
[2024-05-31 02:13] VITALS: BP 119/74
[2024-05-31 05:10] LABS: BASOPHILS PERCENT AUTO 1 % (0-2); EOSINOPHILS ABSOLUTE AUTO 0.38 K/mm3 (0.00-0.68); EOSINOPHILS PERCENT AUTO 5 % (0-6); Hematocrit 42.3 % (37.0-53.0); Hemoglobin 14.4 g/dL (13.5-17.5); IMMATURE GRAN ABSOLUTE AUTO 0.05 K/mm3 (0.00-0.10); IMMATURE GRAN PERCENT AUTO 1 % (0-1); LYMPHOCYTES ABSOLUTE AUTO 2.18 K/mm3 (0.84-5.20); LYMPHOCYTES PERCENT AUTO 28 % (21-46); MONOCYTES ABSOLUTE AUTO 1.11 K/mm3 (0.16-1.47); MONOCYTES PERCENT AUTO 14 % (4-13); Mean Corpuscular HGB 28.7 pg (26.0-34.0); Mean Corpuscular Volume 84 fL (80-100); Mean Platelet Volume 9.3 fL (9.1-12.4); NEUTROPHILS ABSOLUTE AUTO 3.99 K/mm3 (1.96-9.15); NEUTROPHILS PERCENT AUTO 51 % (41-73); Platelet Count 188 K/mm3 (150-400); RDW Coefficient Variation 13.4 % (11.7-14.2); RDW Standard Deviation 41.3 fL (35.1-46.3); Red Blood Cell Count 5.02 M/mm3 (4.30-5.90); White Blood Cell Count 7.81 K/mm3 (4.00-11.30)
--- NOTE | 2024-05-31 05:13 | NUR ---
SHIFT SUMMARY PT INDEPENDENT IN ROOM. DENIES PAIN. RLE CELLULITIS REMAINS IN THE MARKED AREA, PT KEEPS LEG ELEVATED WHEN IN BED. IV ANTIBIOTICS CONTINUE. AWAIT RESULT OF VANC. TROUGH. SIDERAILS UP X 2, CALL LIGHT WITHIN REACH.
[2024-05-31 06:12] LABS: Anion Gap 13 mmol/L (3-11); Blood Urea Nitrogen 13 mg/dL (8-24); Bun/Creatinine Ratio 14.1 (12.0-20.0); CO2, Blood 24 mmol/L (21-32); Calcium, Blood 8.8 mg/dL (8.5-10.1); Chloride, Blood 106 mmol/L (98-108); Creatinine, Blood 0.92 mg/dL (0.60-1.20); Glomerular Filtration Rate 100 (60-); Glucose, Blood 127 mg/dL (70-99); Potassium, Blood 3.8 mmol/L (3.5-5.5); Sodium, Blood 139 mmol/L (136-145); Vancomycin, Trough 14.1 ug/mL (5.0-10.0)
[2024-05-31 07:43] VITALS: BP 123/81
[2024-05-31 15:37] VITALS: BP 141/75
[2024-05-31] MEDS ORDERED: BACTRIM DS TAB1 EAC6 PO (16:10)
--- NOTE | 2024-05-31 16:36 | NUR ---
DISCHARGE NOTE PT DISCHARGED HOME. PT PROVIDED WITH VERBAL AND WRITTEN INSTRUCTIONS AND REPORTED UNDERSTANDING. PT A&OX4, VSS. AMBULATING INDEPENDENTLY, TOLERATING PO, VOIDING, AND NO COMPLAINT OF PAIN. BELONGINGS RETURNED. PT WALKED OUT WITH .
== END 2024-05-31 16:29 | disposition home or self-care (01) | DRG 603 ==
LOC: ER 17:04 → MEDS 19:36
PROVIDERS: Internal Medicine; Student in an Organized Health Care Education/Training Program; ADMIT Student in an Organized Health Care Education/Training Program
DX: L03.115 Cellulitis of right lower limb (principal); Z68.41 Body mass index [BMI] 40.0-44.9, adult; I10 Essential (primary) hypertension; E66.01 Morbid (severe) obesity due to excess calories; E88.810 Metabolic syndrome; G47.00 Insomnia, unspecified; G47.33 Obstructive sleep apnea (adult) (pediatric); Z99.89 Dependence on other enabling machines and devices; Z88.8 Allergy status to other drugs, medicaments and biological substances; Z79.899 Other long term (current) drug therapy; Z79.2 Long term (current) use of antibiotics; Z98.890 Other specified postprocedural states; Z87.891 Personal history of nicotine dependence
CPT/HCPCS: 36415; 80048; 80053; 80202; 83605; 83735; 85025; 86140; 96365; 99284-25; A9270; J0696; J1650; J3370; J7040; J7050